=== PATIENT | female | born 1980 | race Caucasian/White ===

== ENCOUNTER 2017-07-30 18:55 | Emergency (ER) | payer MEDICAID ==
[~2017-07-30] VITALS: Ht 157.5 cm; Wt 75.1 kg
[2017-07-30 19:04] VITALS: BP 146/83
[2017-07-30] MEDS ORDERED: DEXAMETHASONE 4 MG TABLET PO ONE (19:30)
[2017-07-30] MEDS ORDERED: DEXAMETHASONE 4 MG TABLET ONE (19:47)
== END 2017-07-30 20:43 | disposition home or self-care (01) ==
LOC: ED 20:05
DX: J02.8 Acute pharyngitis due to other specified organisms (principal)
CPT/HCPCS: 87081; 87880; 99284